=== PATIENT | female | born 1990 | race Hispanic/Latino ===

== ENCOUNTER 2024-03-22 17:07 | Emergency (ER) | payer SELFPAY ==
[~2024-03-22] VITALS: Ht 162.6 cm; Wt 90.7 kg
[2024-03-22] MEDS ORDERED: TOBR5DRO46 OP (17:36)
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
[2024-03-22] MEDS: TobRAMYCin/DEXAmethASONE OPTH SUSP 2.5 ML BOT OD SCH (18:17)
[2024-03-22 18:53] VITALS: BP 137/93; PULSE 80; RESP 16; TEMP 98.2; O2SAT 98
== END 2024-03-22 18:54 | disposition home or self-care (01) ==
LOC: EDH 17:07
DX: H57.89 Other specified disorders of eye and adnexa (principal); Z79.899 Other long term (current) drug therapy
CPT/HCPCS: 99283